=== PATIENT | female | born 1935 | race Asian ===

== ENCOUNTER → 2017-07-03 | Outpatient (CLI) | payer MEDICARE, MEDICAID ==
[~2017-07-03] MED LIST: ALLO100T PO; AMOX-462 PO; ASPI-825 PO; CALC667T3 PO; CARV6 PO; CINA30 PO; FOLI1 PO; HYDR-4173 PO; ONDA4 PO; SIMV-260 PO; VITAD1000 PO
== END | disposition home or self-care (01) ==
LOC: CARDMN 08:23
PROVIDERS: ATTEND Internal Medicine Cardiovascular Disease
DX: I35.8 Other nonrheumatic aortic valve disorders (principal)
CPT/HCPCS: 93306

== ENCOUNTER → 2017-07-05 | Outpatient (CLI) | payer MEDICARE, MEDICAID ==
[~2017-07-05] MED LIST changes: +REGADENOSON 0.4 MG/5 ML PF SYRINGE IVP ONE; +SESTAMIBI TC99M/UD ISOTOPE 1 EA INJ INJ ONE
[2017-07-05 08:30] VITALS: BP 115/46
[2017-07-05 10:13] VITALS: BP 126/59
== END | disposition home or self-care (01) ==
LOC: CARDMN 08:09
PROVIDERS: ATTEND Internal Medicine Cardiovascular Disease
DX: I50.1 Left ventricular failure, unspecified (principal); I25.10 Atherosclerotic heart disease of native coronary artery without angina pectoris; R07.9 Chest pain, unspecified; R91.8 Other nonspecific abnormal finding of lung field; Z95.1 Presence of aortocoronary bypass graft
CPT/HCPCS: 78452; 93017; A9500; J2785

== ENCOUNTER → 2017-09-18 | Outpatient (CLI) | payer MEDICARE, OTHER ==
[~2017-09-18] MED LIST changes: -REGADENOSON 0.4 MG/5 ML PF SYRINGE IVP ONE; -SESTAMIBI TC99M/UD ISOTOPE 1 EA INJ INJ ONE
== END | disposition home or self-care (01) ==
LOC: RADPV 15:33
PROVIDERS: ATTEND Internal Medicine
DX: M19.032 Primary osteoarthritis, left wrist (principal); M25.832 Other specified joint disorders, left wrist; M25.432 Effusion, left wrist; W19.XXXA Unspecified fall, initial encounter

== ENCOUNTER → 2018-06-25 | Outpatient (CLI) | payer MEDICARE, OTHER | END | disposition home or self-care (01) | LOC: RADMN 10:35 | PROVIDERS: ATTEND Physical Medicine & Rehabilitation | DX: M17.12 Unilateral primary osteoarthritis, left knee (principal); M65.9 Synovitis and tenosynovitis, unspecified; M25.462 Effusion, left knee; M23.222 Derangement of posterior horn of medial meniscus due to old tear or injury, left knee; E78.00 Pure hypercholesterolemia, unspecified; M10.9 Gout, unspecified; I13.2 Hypertensive heart and chronic kidney disease with heart failure and with stage 5 chronic kidney disease, or end stage renal disease; N18.6 End stage renal disease; I50.9 Heart failure, unspecified; Z99.2 Dependence on renal dialysis | CPT/HCPCS: 73721 ==

== ENCOUNTER 2018-07-22 12:09 | Inpatient (IN) | payer MEDICARE, OTHER ==
[~2018-07-22] VITALS: Ht 154.9 cm; Wt 54.1 kg
[2018-07-22] MEDS ORDERED: CINA30 PO (12:16)
[2018-07-22 12:25] LABS: GLUCOSE,POINT OF CARE 146 MG/DL (70-110)
[2018-07-22 12:46] LABS: BASOPHILS % (AUTO) 0.9 % (0.0-2.0); EOSINOPHILS % (AUTO) 0.7 % (1.0-6.0); HEMATOCRIT 33.6 % (36-46); HEMOGLOBIN 11.1 g/dL (12.0-16.0); LYMPHOCYTES # (AUTO) 1.8 K/uL (1.0-4.8); LYMPHOCYTES % (AUTO) 19.8 % (22.0-44.0); MEAN CORPUSCULAR HEMOGLOBIN 32.8 pg (26.0-34.0); MEAN CORPUSCULAR HGB CONC 33.1 G/dL (31.0-37.0); MEAN CORPUSCULAR VOLUME 99 fL (80-100); MONOCYTES # (AUTO) 0.4 K/uL (0.1-1.0); MONOCYTES % (AUTO) 4.9 % (2.0-9.0); NEUTROPHILS # (AUTO) 6.5 K/uL (1.8-7.7); NEUTROPHILS % (AUTO) 73.7 % (40.0-70.0); PLATELET COUNT (AUTO) 274 K/uL (150-450)
[2018-07-22 12:56] LABS: CALCIUM, TOTAL 9.3 mg/dL (8.8-10.5); CREATININE 7.51 mg/dL (0.60-1.30)
[2018-07-22 13:01] LABS: BILIRUBIN,TOTAL 0.4 mg/dL (0.1-1.0); TOTAL PROTEIN, SERUM 8.3 g/dL (6.4-8.2)
[2018-07-22] MEDS ORDERED: ASPIRIN 81 MG CHEWABLE TABLET PO ONE (13:30)
[2018-07-22 14:36] LABS: INFLUENZA TYPE A NEGATIVE FOR TYPE A (NEGATIVE); INFLUENZA TYPE B NEGATIVE FOR TYPE B (NEGATIVE)
[2018-07-22] MEDS ORDERED: IOVERSOL 320 MG/ML 100 ML VIAL ONE (16:15)
[2018-07-22] MEDS ORDERED: SODIUM CHLORIDE 0.9% 100 ML ONE (16:15)
[2018-07-22 17:21] VITALS: BP 171/76
[2018-07-22] MEDS ORDERED: BISACODYL 10 MG RECTAL RECTAL SUPPOSITORY PR PRN (18:00)
[2018-07-22] MEDS ORDERED: ZOLPIDEM TARTRATE 5 MG TABLET PO PRN (18:00)
[2018-07-22] MEDS ORDERED: MAGNESIUM HYDROXIDE SUSPENSION 30 ML UDCUP PO PRN (18:00)
[2018-07-22] MEDS ORDERED: ONDANSETRON HCL 4 MG/2 ML VIAL IVP PRN (18:00)
[2018-07-22] MEDS ORDERED: ACETAMINOPHEN 325 MG TABLET PO PRN (18:00)
[2018-07-22] MEDS ORDERED: ALBUTEROL SULFATE 2.5 MG/0.5 ML NEB SOLUTION NEB PRN (18:00)
[2018-07-22] MEDS ORDERED: HYDROCODONE/ACETAMINOPHEN 5-325 MG TABLET PO PRN (18:00)
[2018-07-22] MEDS ORDERED: MORPHINE SULFATE 2 MG/ML SYRINGE IVP PRN (18:00)
[2018-07-22] MEDS ORDERED: IPRATROPIUM BROMIDE 0.5 MG/2.5 ML NEB SOLUTION NEB PRN (18:00)
[2018-07-22 19:42] VITALS: BP 173/87
[2018-07-22] MEDS: HydrALAZINE HCL 25 MG TABLET PO SCH (21:00)
[2018-07-22] MEDS: DOCUSATE SODIUM 100 MG CAPSULE PO SCH (22:05)
[2018-07-22] MEDS: CARVEDILOL 6.25 MG TABLET PO SCH (22:05)
[2018-07-22 23:51] VITALS: BP 98/59
[2018-07-22] MEDS: HEPARIN SODIUM,PORCINE 5,000 UNITS/ML VIAL SQ SCH (23:55)
[2018-07-23 00:45] VITALS: BP 100/50
[2018-07-23 04:25] VITALS: BP 125/60
[2018-07-23 06:00] LABS: GLUCOMETER DEV NAME(LOC) 5N 2S; GLUCOSE,POINT OF CARE 115 MG/DL (70-110)
[2018-07-23 07:06] LABS: BASOPHILS % (AUTO) 1.3 % (0.0-2.0); EOSINOPHILS % (AUTO) 1.9 % (1.0-6.0); HEMATOCRIT 29.5 % (36-46); HEMOGLOBIN 10.1 g/dL (12.0-16.0); LYMPHOCYTES # (AUTO) 1.8 K/uL (1.0-4.8); LYMPHOCYTES % (AUTO) 25.7 % (22.0-44.0); MEAN CORPUSCULAR HEMOGLOBIN 33.1 pg (26.0-34.0); MEAN CORPUSCULAR HGB CONC 34.2 G/dL (31.0-37.0); MEAN CORPUSCULAR VOLUME 97 fL (80-100); MONOCYTES # (AUTO) 0.5 K/uL (0.1-1.0); MONOCYTES % (AUTO) 7.6 % (2.0-9.0); NEUTROPHILS # (AUTO) 4.4 K/uL (1.8-7.7); NEUTROPHILS % (AUTO) 63.5 % (40.0-70.0); PLATELET COUNT (AUTO) 271 K/uL (150-450); RED BLOOD CELL COUNT(AUTO) 3.05 MIL/uL (4.00-5.20); RED CELL DISTRIBUTION WIDTH 15.8 % (11.5-14.5)
[2018-07-23 07:16] VITALS: BP 129/59
[2018-07-23 07:31] LABS: ALBUMIN 2.8 g/dL (3.4-5.0); BILIRUBIN,TOTAL 0.5 mg/dL (0.1-1.0); CREATININE 3.54 mg/dL (0.60-1.30); MAGNESIUM 1.6 mg/dL (1.80-2.40); TOTAL PROTEIN, SERUM 7.7 g/dL (6.4-8.2)
[2018-07-23] MEDS ORDERED: CINACALCET HCL 30 MG TABLET PO SCH (08:00)
[2018-07-23] MEDS: CARVEDILOL 6.25 MG TABLET PO SCH (08:15)
[2018-07-23] MEDS: DOCUSATE SODIUM 100 MG CAPSULE PO SCH (08:16)
[2018-07-23] MEDS: HEPARIN SODIUM,PORCINE 5,000 UNITS/ML VIAL SQ SCH ×2 (08:18→16:40)
[2018-07-23] MEDS ORDERED: ASPIRIN 81 MG CHEWABLE TABLET PO SCH (09:00)
[2018-07-23] MEDS ORDERED: ALLOPURINOL 100 MG TABLET PO SCH (09:00)
[2018-07-23] MEDS: HydrALAZINE HCL 25 MG TABLET PO SCH ×2 (09:00→16:33)
[2018-07-23] MEDS ORDERED: PANTOPRAZOLE SODIUM 40 MG/VIAL IVP SCH (09:00)
[2018-07-23] MEDS ORDERED: FOLIC ACID 1 MG TABLET PO SCH (09:00)
[2018-07-23 11:40] VITALS: BP 117/52
[2018-07-23] MEDS ORDERED: MAGNESIUM SULFATE 2 GM/WATER 50 ML IV ONE (13:00)
[2018-07-23] MEDS ORDERED: SODIUM CHLORIDE 0.9% 250 ML IV ONE (13:31)
[2018-07-23 15:13] VITALS: BP 126/57
[2018-07-23 16:30] VITALS: BP 138/65
== END 2018-07-23 18:10 | disposition home or self-care (01) | DRG 391 ==
LOC: EMS 12:09 → 5S 15:26
PROVIDERS: ADMIT Hospitalist; ATTEND Hospitalist
PROC: 5A1D70Z Performance of Urinary Filtration, Intermittent, Less than 6 Hours Per Day (ICD-10-PCS; principal; 2018-07-22)
DX: A08.4 Viral intestinal infection, unspecified (principal); N18.6 End stage renal disease; E44.0 Moderate protein-calorie malnutrition; E87.1 Hypo-osmolality and hyponatremia; I12.0 Hypertensive chronic kidney disease with stage 5 chronic kidney disease or end stage renal disease; M10.9 Gout, unspecified; I25.10 Atherosclerotic heart disease of native coronary artery without angina pectoris; D64.9 Anemia, unspecified; M19.90 Unspecified osteoarthritis, unspecified site; E11.22 Type 2 diabetes mellitus with diabetic chronic kidney disease; Z90.49 Acquired absence of other specified parts of digestive tract; Z95.1 Presence of aortocoronary bypass graft; Z99.2 Dependence on renal dialysis; Z83.3 Family history of diabetes mellitus; Z68.22 Body mass index [BMI] 22.0-22.9, adult
CPT/HCPCS: 74022; 74177; 83735; 84100; 87081; 87804; 93005; 99291; C9113; J1644; J3475; J7050